=== PATIENT | male | born 1975 | race Caucasian/White ===

== ENCOUNTER 2024-05-20 11:03 | Emergency (ER) | payer OTHER, SELFPAY ==
[2024-05-20 11:05] VITALS: BP 161/101
--- NOTE | 2024-05-20 12:13 | ED.GENMED ---
History of Present Illness
General
Chief Complaint: Musculo-Skeletal Complaint
Source: patient
Exam Limitations: none
Time Seen by Provider: 05/20/24 11:48
Nursing documentation reviewed up to this point in time: agreed with
History of Present Illness
History of Present Illness:
Patient is a 48-year male who presents to the complaining of left upper back pain left lateral neck pain which radiates down to his left arm. He complains of mild numbness and tingling to his left thumb and left index finger. He denies any
weakness. He is followed his family doctor several days ago and has been taking ibuprofen Medrol Dosepak and Flexeril without relief. He took 2 tablets (8mg) of his Medrol Dosepak today without relief. He denies any injury. He has an x-ray
ordered but had not had the x-ray done.
Denies any weakness in extremities.
Review of Systems
Review of Systems
Allergies reviewed?: Yes
All Other Systems: ROS reviewed and negative except as documented in HPI and ROS
Constitutional: Reports no symptoms
EENT: Reports no symptoms
Respiratory: Reports no symptoms
Cardiac: Reports no symptoms
ABD/GI: Reports no symptoms
: Reports no symptoms
Musculoskeletal: Reports other (left upper back pain with radiation to left arm + mild paresthesias to left thumb and index finger )
Skin: Reports no symptoms; Denies rash
Neurological: Reports no symptoms
Psychiatric: Reports no symptoms
Phy Exam
General Physical Exam
General Presentation: no apparent distress
General age: appears stated age
General Skin: warm and dry
General Habitus: normal
General Mental: alert
General Hydration: appears well hydrated
Neurological Exam
Neurological Exam: alert, oriented x3 and other (intact sensation to left fingers hands nml strength to arms )
Musculoskeletal Exam
Musculoskeletal Exam: other (mildly tender to left upper trapezius region full ROM to left arm )
Skin Exam
Skin Exam: normal color and warm/dry
Psychiatric Exam
Psychiatric Exam: normal mood/affect
Course
Orders/Labs/Results
Orders:
Orders
05/20/24 12:13
Dexamethasone Sod Phosphate [Decadron] 10 mg IM NOW STA
Ketorolac [Toradol] 30 mg IM NOW STA
05/20/24 12:14
CT Cervical Spine W/o Iv Contr Urgent
Comment:
Reason For Exam: neck pain
Vital Signs
Initial and Last Documented VS:
Initial Vital Signs
Temp Pulse Resp BP Pulse Ox
97.9 F 93 16 161/101 98
05/20/24 11:05 05/20/24 11:05 05/20/24 11:05 05/20/24 11:05 05/20/24 11:05
Last Documented Vital Signs
Temp Pulse Resp BP Pulse Ox
97.9 F 68 15 137/99 98
05/20/24 11:05 05/20/24 13:37 05/20/24 13:37 05/20/24 13:37 05/20/24 13:37
MDM/Problems Addressed
Differential Diagnosis Includes:
Not limited to radicular pain
MDM/Problems Addressed:
Symptoms are consistent with cervical radiculopathy. Patient no acute distress. Patient was on low-dose Medrol Dosepak however not having relief. Patient much has no neurological deficits. No trauma. CAT scan as documented was done and does
show mild degenerative disc disease at C5-C6 and C6-C7 with associated left foraminal narrowing.
May need MRI as an outpatient with close outpatient Ortho follow-up. Will have patient stop his low-dose Medrol Dosepak and start higher prednisone taper. He has tramadol at home.
*Critical Care Note
Total Time (30-74mins, 75-104mins- exclusive of procedures): Not Applicable
ED Attending Note
-
Portions of this chart may have been created with voice recognition software.� Occasional wrong word or��sound alike� substitutions may have occurred due to the inherent limitations of voice recognition software.
Discharge Plan
Departure
Patient Disposition: Home (Routine Discharge)
Date of Disposition: 05/20/24
Time of Disposition: 13:51
Patient with high blood pressure during this ER visit?: Yes
Condition: Fair
Covid-19: Not Applicable
Discharge Problem:
Cervical radiculopathy
Instructions: Radiculopathy (DC)
Prescriptions:
New
prednisone 10 mg Tablet
See Rx Instructions .ROUTE .COMPLEX Qty: 30 0RF
Rx Instructions:
Take By Mouth:
40 mg daily x3 days, 30 mg daily x3 days,
20 mg daily x3 days, 10 mg daily x3 days.
Referrals:
Can Almanzar MD [Active] -
UNKNOWN - PT DOES,NOT KNOW [Family Provider] -
Activity Restrictions/Additional Instructions:
Stop Medrol Dosepak
as discussed a prescription for prednisone taper was sent to your pharmacy take as directed. Follow-up with orthopedics. You may take your tramadol for pain as needed
You may need further imaging including MRI. Return if any worsening of symptoms including weakness in arm or any further concerns.
Interventions
Interventions:
*Risk Screen - Suicide Last Done: 05/20/24 11:07
*General Assessment Last Done: 05/20/24 11:45
*Neglect/Abuse Screening Last Done: 05/20/24 11:07
ED- Fall Risk Assessment Last Done: 05/20/24 11:45
ED-Musculoskeletal Assessment Last Done: 05/20/24 11:45
Discharge Date and Time
Print Language: MAURITIAN
[2024-05-20] MEDS: DECADRON 10 MG IM (12:24)
[2024-05-20] MEDS: TORADOL 30 MG IM (12:24)
[2024-05-20 13:37] VITALS: BP 137/99
== END 2024-05-20 14:15 | disposition home or self-care (01) ==
LOC: EMR 11:03
PROVIDERS: EMERGENCY PHYSICIAN Emergency Medicine
DX: M50.122 Cervical disc disorder at C5-C6 level with radiculopathy (principal)
CPT/HCPCS: 99284; 96372; 72125